=== PATIENT | female | born 1940 | race Hispanic/Latino ===

== ENCOUNTER 2020-05-13 08:35 | Observation (INO) | payer MEDICARE, BC ==
[~2020-05-13] VITALS: Ht 160 cm; Wt 62.1 kg
[~2020-05-13 08:35] MED LIST: BISACODYL 5 MG TABLET.DR PO ONE
[2020-05-13 10:23] LABS: BASOPHILS % (AUTO) 0.7 % (0.0-5.0); EOSINOPHILS % (AUTO) 6.8 % (0.0-8.0); HEMATOCRIT 34.5 % (36-48); LYMPHOCYTES % (AUTO) 31.3 % (21.0-51.0); MEAN CORPUSCULAR HGB CONC 33.6 g/dL (32.0-36.0); MEAN CORPUSCULAR VOLUME 92.2 fL (79-99); MONOCYTES % (AUTO) 8.1 % (3.0-13.0); NEUTROPHILS % (AUTO) 52.8 % (40.0-77.0); PLATELET COUNT (AUTO) 204 K/uL (130-400); RED BLOOD CELL COUNT(AUTO) 3.74 MIL/uL (4.00-5.50); RED CELL DISTRIBUTION WIDTH 13.7 % (11.0-15.5)
[2020-05-13 10:34] LABS: POTASSIUM 3.3 mmol/L (3.5-5.1)
[2020-05-13 10:38] LABS: ALBUMIN 3.1 g/dL (3.5-5.0); BILIRUBIN,TOTAL 0.7 mg/dL (0.2-1.0); TOTAL PROTEIN, SERUM 6.6 g/dL (6.0-8.3)
[2020-05-13 10:40] LABS: INR 0.98 (0.85-1.15); PROTHROMBIN TIME 10.7 SEC (9.6-11.6)
[2020-05-13 10:41] LABS: PARTIAL THROMBOPLASTIN TIME 22.5 SEC (26.3-35.5)
[2020-05-13] MEDS ORDERED: ONDANSETRON HCL 4 MG/2 ML VIAL IV PRN (13:45)
[2020-05-13] MEDS ORDERED: LACTULOSE 20 GM/30 ML UDCUP PO PRN (13:45)
[2020-05-13] MEDS ORDERED: ACETAMINOPHEN 325 MG TAB PO PRN ×2 (13:45)
[2020-05-13] MEDS ORDERED: PANTOPRAZOLE 40 MG/VIAL ONE (13:51)
[2020-05-13] MEDS ORDERED: LACTATED RINGERS 1000ML 1,000 ML IV ONE (13:51)
[2020-05-13] MEDS ORDERED: POTASSIUM CHLORIDE 20 MEQ ERTAB PO PRN (14:00)
[2020-05-13] MEDS ORDERED: POTASSIUM CHLORIDE 10MEQ/100ML 100 ML IV PRN (14:00)
[2020-05-13] MEDS ORDERED: LIDOCAINE HCL-MPF 1% 2ML VIAL IV PRN (14:00)
[2020-05-13 15:28] LABS: HEMATOCRIT 34.3 % (36-48)
[2020-05-13] MEDS ORDERED: POTASSIUM CHLORIDE 10% ELIXIR 20 MEQ/15 ML UDCUP ONE (19:12)
[2020-05-13] MEDS ORDERED: LACTULOSE 20 GM/30 ML UDCUP ONE (21:52)
[2020-05-13] MEDS ORDERED: POTASSIUM CHLORIDE 20 MEQ ERTAB PO ONE (21:52)
[2020-05-13] MEDS ORDERED: MAGNESIUM CITRATE 296 ML SOLUTION ONE (21:53)
[2020-05-13] MEDS: POTASSIUM CHLORIDE 20 MEQ ERTAB PO SCH ×2 (22:00→23:47)
[2020-05-13 22:35] VITALS: BP 138/90
[2020-05-13] MEDS ORDERED: MAGNESIUM CITRATE 296 ML SOLUTION PO SCH (22:45)
[2020-05-13] MEDS ORDERED: LACTULOSE 20 GM/30 ML UDCUP PO ONE (22:45)
[2020-05-13] MEDS ORDERED: PEG 3350/NA SULF,BICARB,CL/KCL 4000 ML SOLN PO SCH (22:45)
[2020-05-13] MEDS ORDERED: CALC-1252 PO (23:14)
[2020-05-13] MEDS ORDERED: PRAV40TA3 PO (23:14)
[2020-05-13] MEDS ORDERED: ASPI-1005 PO (23:14)
[2020-05-13] MEDS ORDERED: PRED5DRO25 OS (23:14)
[2020-05-13] MEDS ORDERED: BIMA2.5D4 OU (23:14)
[2020-05-13] MEDS ORDERED: LEVO50CA4 PO (23:14)
[2020-05-13] MEDS ORDERED: POTA8CAP20 PO (23:14)
[2020-05-13] MEDS ORDERED: ATEN1TAB4 PO (23:14)
[2020-05-14] VITALS (21 sets, daily range): BP systolic 98–156; BP diastolic 51–82
[2020-05-14] MEDS ORDERED: BISACODYL 5 MG TABLET.DR PO SCH (02:00)
[2020-05-14 05:46] LABS: BASOPHILS % (AUTO) 0.4 % (0.0-5.0); EOSINOPHILS % (AUTO) 0.1 % (0.0-8.0); HEMATOCRIT 29.4 % (36-48); LYMPHOCYTES % (AUTO) 22.2 % (21.0-51.0); MEAN CORPUSCULAR HEMOGLOBIN 31.7 pg (27.0-33.0); MEAN CORPUSCULAR HGB CONC 33.7 g/dL (32.0-36.0); MEAN CORPUSCULAR VOLUME 94.2 fL (79-99); MONOCYTES % (AUTO) 4.9 % (3.0-13.0); NEUTROPHILS % (AUTO) 72.2 % (40.0-77.0); PLATELET COUNT (AUTO) 241 K/uL (130-400); RED BLOOD CELL COUNT(AUTO) 3.12 MIL/uL (4.00-5.50); WHITE BLOOD COUNT (AUTO) 12.2 K/uL (4.8-10.8)
[2020-05-14 05:47] LABS: CREATININE 1.2 mg/dL (0.5-1.5); POTASSIUM 3.6 mmol/L (3.5-5.1)
[2020-05-14] MEDS: PANTOPRAZOLE SODIUM 40 MG TABLET.DR PO SCH ×2 (09:00→14:51)
[2020-05-14] MEDS ORDERED: PROPOFOL 10 MG/ML 20ML VIAL IV ONE (11:52)
[2020-05-15 03:41] VITALS: BP 93/56
[2020-05-15 05:21] LABS: BASOPHILS % (AUTO) 1.1 % (0.0-5.0); EOSINOPHILS % (AUTO) 0.9 % (0.0-8.0); HEMATOCRIT 21.4 % (36-48); LYMPHOCYTES % (AUTO) 49.3 % (21.0-51.0); MEAN CORPUSCULAR HEMOGLOBIN 31.3 pg (27.0-33.0); MEAN CORPUSCULAR HGB CONC 33.2 g/dL (32.0-36.0); MEAN CORPUSCULAR VOLUME 94.3 fL (79-99); MONOCYTES % (AUTO) 10.6 % (3.0-13.0); NEUTROPHILS % (AUTO) 37.7 % (40.0-77.0); PLATELET COUNT (AUTO) 144 K/uL (130-400); RED BLOOD CELL COUNT(AUTO) 2.27 MIL/uL (4.00-5.50); RED CELL DISTRIBUTION WIDTH 14.1 % (11.0-15.5); WHITE BLOOD COUNT (AUTO) 5.6 K/uL (4.8-10.8)
[2020-05-15 05:34] LABS: CREATININE 0.8 mg/dL (0.5-1.5); POTASSIUM 3.4 mmol/L (3.5-5.1)
[2020-05-15 08:00] VITALS: BP 106/57
[2020-05-15] MEDS ORDERED: ASCO-360 PO (11:56)
[2020-05-15] MEDS ORDERED: FERR325T22 PO (11:56)
[2020-05-15 12:00] VITALS: BP 140/74
[2020-05-15 12:46] LABS: HEMATOCRIT 27.7 % (36-48)
[2020-05-15] MEDS: POTASSIUM CHLORIDE 10% ELIXIR 20 MEQ/15 ML UDCUP PO PRN ×2 (13:34→15:32)
== END 2020-05-15 16:15 | disposition home or self-care (01) ==
LOC: EDH 08:35 → EDHIP 13:42 → 3DH 21:15
PROVIDERS: ADMIT Internal Medicine; ATTEND Internal Medicine
DX: K92.1 Melena (principal); Z20.822 Contact with and (suspected) exposure to COVID-19; E87.6 Hypokalemia; K92.2 Gastrointestinal hemorrhage, unspecified; K64.0 First degree hemorrhoids; I10 Essential (primary) hypertension; K55.20 Angiodysplasia of colon without hemorrhage; E78.5 Hyperlipidemia, unspecified; D62 Acute posthemorrhagic anemia; K64.8 Other hemorrhoids; K59.09 Other constipation; E03.9 Hypothyroidism, unspecified; Z98.51 Tubal ligation status; Z79.899 Other long term (current) drug therapy; Z88.1 Allergy status to other antibiotic agents
CPT/HCPCS: 36415 ×3; 45378; 80048 ×2; 80053; 85014 ×4; 85018 ×4; 85025 ×3; 85610; 85730; 86850; 86900; 86901; 86923; 87426; 96365; 96375 ×2; 99284; A4215; A4222; A4223; A4600; A4606; A4620; A4657; C9113; G0378 ×48; J2405; J2704; J3490; J7030; J7120; U0003